=== PATIENT | female | born 1965 | race Hispanic/Latino ===

== ENCOUNTER 2018-01-15 13:45 | Inpatient (IN) | payer MEDICAID ==
[2018-01-15 13:46] VITALS: BMI 40.1
[2018-01-15 14:11] VITALS: O2SAT 98
--- NOTE | 2018-01-15 14:34 | ED PDOC ---
Arrival/HPI - General Chief Complaint: Psychiatric Evaluation Time Seen by Provider: 01/15/18 14:01 Historian: Patient - History of Present Illness Time/Duration: Other (Several months) Symptom Onset: Gradual Symptom Course: Worsening Severity Level: Moderate Activities at Onset: Rest Associated Symptoms (Text): 01/15/18 14:32 Patient complains of a several month history of depression. She states she has no energy and is unable to concentrate and has poor eating and sleeping habits. She denies suicidal or homicidal ideation. Denies visual or auditory hallucinations. She reports that she has had 2 deaths in her family over the last few months. She stopped taking her Synthroid 5 months ago. She does not take her Neurontin or Celebrex as prescribed. Her niece and sister in law have over the last several months. Past Medical History - Infectious Disease Hx of Infectious Diseases: None - Reproductive Menopause: Yes - Cardiac Hx Pacemaker: No - Neurological Hx Paralysis: No - Endocrine/Metabolic Hx Endocrine Disorders: Yes Hx Hypothyroidism: Yes - Hematological/Oncological Hx Blood Transfusions: No Hx Blood Transfusion Reaction: No - Musculoskeletal/Rheumatological Hx Musculoskeletal Disorders: Yes (PAIN/SWELLING L KNEE) Other/Comment: rt shoulder pain since Aug - Psychiatric Hx Emotional Abuse: No Hx Physical Abuse: No Hx Substance Use: No - Surgical History Hx Section: Yes - Anesthesia Hx Anesthesia: Yes Hx Anesthesia Reactions: No Hx Malignant Hyperthermia: No - Suicidal Assessment Feels Threatened In Home Enviroment: No Family/Social History - Physician Review Nursing Documentation Reviewed: Yes Family/Social History: Unknown Family HX Smoking Status: Former Smoker Hx Alcohol Use: Yes (ON OCCASION) Hx Substance Use: No Allergies/Home Meds Allergies/Adverse Reactions: Allergies gemfibrozil Adverse Reaction (Verified 01/15/18 14:11) FATIGUE lovastatin Adverse Reaction (Verified 01/15/18 14:11) FATIGUE Home Medications: Home Meds Medication Instructions Recorded Confirmed Omeprazole Magnesium [Prilosec Otc] 20 mg PO PRN PRN 06/23/14 01/15/18 Gabapentin [Neurontin] 300 mg PO TID 02/29/16 01/15/18 Oxycodone HCl/Acetaminophen 1 each PO PRN PRN 02/29/16 01/15/18 [Percocet 10-325 mg Tablet] Review of Systems - Physician Review All systems were reviewed & negative as marked: Yes - Review of Systems Constitutional: Fatigue. absent: Fevers Respiratory: absent: SOB, Cough, Wheezing Cardiovascular: absent: Chest Pain, Palpitations, Syncope Gastrointestinal: absent: Abdominal Pain, Diarrhea, Vomiting Genitourinary Female: absent: Dysuria, Frequency, Hematuria Neurological: absent: Headache, Dizziness, Focal Weakness, Gait Changes Physical Exam Vital Signs Temp Pulse Resp BP Pulse Ox 01/15/18 15:05 86 18 152/96 H 98 01/15/18 14:06 98.4 F 96 H 18 157/101 H 98 Temperature: Afebrile Blood Pressure: Hypertensive Pulse: Regular Respiratory Rate: Normal Appearance: Positive for: Well-Appearing, Non-Toxic, Comfortable, Other (Crying) Pain Distress: None Mental Status: Positive for: Alert and Oriented X 3 - Systems Exam Head: Present: Atraumatic, Normocephalic Pupils: Present: PERRL Extroacular Muscles: Present: EOMI Conjunctiva: Present: Normal Mouth: Present: Moist Mucous Membranes Pharnyx: No: ERYTHEMA, EXUDATE, TONSILS ENLARGED Neck: Present: Normal Range of Motion Respiratory/Chest: Present: Clear to Auscultation, Good Air Exchange, Decreased Breath Sounds. No: Respiratory Distress, Accessory Muscle Use Cardiovascular: Present: Regular Rate and Rhythm, Normal S1, S2. No: Murmurs Abdomen: Present: Normal Bowel Sounds. No: Tenderness, Distention, Peritoneal Signs, Rebound, Guarding Upper Extremity: Present: Normal Inspection. No: Cyanosis, Edema Lower Extremity: Present: Normal Inspection. No: Edema Neurological: Present: GCS=15, CN II-XII Intact, Speech Normal, Motor Func Grossly Intact Skin: Present: Warm, Dry, Normal Color. No: Rashes Psychiatric: Present: Alert, Oriented x 3, Normal Insight, Normal Concentration Medical Decision Making ED Course and Treatment: 01/15/18 15:13 EKG shows normal sinus rhythm rate approximately 90 with nonspecific T-wave changes and a prolonged QT interval with no acute ST or T-wave changes 01/15/18 17:06 When questioned about positive drug screen the patient reports that she used some cocaine yesterday as a pick me up. She reports she has no idea how she is positive for opiates. - Lab Interpretations Lab Results: 01/15/18 14:50 01/15/18 14:50 Lab Results 01/15/18 14:50: Urine Color Yellow, Urine Appearance Sl cloudy, Urine pH 6.0, Ur Specific Gardner >= 1.030, Urine Protein Trace H, Urine Glucose (UA) Negative , Urine Ketones Trace H, Urine Blood Trace-intact H, Urine Nitrate Negative, Urine Bilirubin Small H, Urine Urobilinogen 0.2, Ur Leukocyte Esterase Trace H, Urine RBC 0 - 2, Urine WBC 2 - 5, Ur Epithelial Cells 6 - 8, Urine Bacteria Few , Urine HCG, Qual Negative 01/15/18 14:50: Urine Opiates Screen Positive H, Urine Methadone Screen Negative , Ur Barbiturates Screen Negative, Ur Phencyclidine Scrn Negative, Ur Amphetamines Screen Negative, U Benzodiazepines Scrn Negative, U Oth Cocaine Metabols Positive H, U Cannabinoids Screen Negative 01/15/18 14:50: Salicylates < 1 L, Acetaminophen < 10.0 L 01/15/18 14:50: TSH 3rd Generation 36.20 H, Alcohol, Quantitative < 10 01/15/18 14:50: Sodium 141, Potassium 4.3, Chloride 102, Carbon Dioxide 27, Anion Gap 16, BUN 13, Creatinine 0.8, Est GFR ( Amer) > 60, Est GFR (Non- Af Amer) > 60, Random Glucose 121 H, Calcium 9.8, Total Bilirubin 0.4, AST 24, ALT 31, Alkaline Phosphatase 113, Total Protein 8.3, Albumin 4.4, Globulin 3.9, Albumin/Globulin Ratio 1.1 01/15/18 14:50: WBC 7.4, RBC 4.48, Hgb 13.5, Hct 39.9, MCV 89.1, MCH 30.1, MCHC 33.8, RDW 14.2, Plt Count 236, MPV 10.7, Gran % 58.2, Lymph % (Auto) 28.5, Ector % (Auto) 5.7, Eos % (Auto) 7.2 H, Baso % (Auto) 0.4, Gran # 4.32, Lymph # (Auto ) 2.1, Ector # (Auto) 0.4, Eos # (Auto) 0.5, Baso # (Auto) 0.03 - Medication Orders Current Medication Orders: Levothyroxine Sodium (Synthroid) 200 mcg PO 0600 [facility] Disposition/Present on Arrival - Present on Arrival Any Indicators Present on Arrival: No History of DVT/PE: No History of Uncontrolled Diabetes: No Urinary Catheter: No History of Decub. Ulcer: No History Surgical Site Infection Following: None - Disposition Have Diagnosis and Disposition been Completed?: Yes Diagnosis: Depression, Substance abuse, Hypothyroidism, Hypertension Disposition: HOSPITALIZED Disposition Time: 16:20 Patient Plan: Admission Patient Problems: Current Active Problems Problem Status Onset Depression Acute Hypertension Acute Hypothyroidism Acute Substance abuse Acute Condition: GOOD
[2018-01-15 15:11] LABS: BASO # 0.03 K/mm3 (0.0-2.0); BASO % 0.4 % (0.0-3.0); EOS # 0.5 (0.0-0.7); EOS % 7.2 % (1.5-5.0); GRAN # 4.32 (1.4-6.5); GRAN % 58.2 % (50.0-68.0); HEMOGLOBIN 13.5 g/dL (12.0-16.0); LYMPH # 2.1 (1.2-3.4); LYMPH % 28.5 % (22.0-35.0); MEAN CELL VOLUME 89.1 fl (80.0-105.0); MEAN CORPUSCULAR HEMOGLOBIN 30.1 pg (25.0-35.0); MEAN CORPUSCULAR HGB CONC 33.8 g/dl (31.0-37.0); MEAN PLATELET VOLUME 10.7 fl (7.0-11.0); MONO # 0.4 (0.1-0.6); MONO % 5.7 % (1.0-6.0); RBC 4.48 10^6/uL (3.5-6.1); RED CELL DISTRIBUTION WIDTH 14.2 % (11.5-14.5); WHITE BLOOD COUNT 7.4 10^3/ul (4.5-11.0)
[2018-01-15 15:13] LABS: URINE BILIRUBIN SMALL (NEGATIVE); URINE BLOOD TRACE-INTACT (NEGATIVE); URINE GLUCOSE (UA) NEGATIVE (NEGATIVE); URINE LEUKOCYTE ESTERASE TRACE Leu/uL (NEGATIVE); URINE PROTEIN TRACE mg/dL (<30 mg/dL); URINE UROBILINOGEN 0.2 E.U./dL (<1 E.U./dL)
[2018-01-15 15:17] LABS: HCG,QUALITATIVE URINE NEGATIVE (NEGATIVE); URINE APPEARANCE SL CLOUDY (CLEAR); URINE COLOR YELLOW (YELLOW)
[2018-01-15 15:20] LABS: URINE BACTERIA FEW (NEG); URINE RBC 0 - 2 /hpf (0-2)
[2018-01-15 15:35] LABS: ALB/GLOB RATIO 1.1 (1.1-1.8); ALBUMIN 4.4 g/dL (3.0-4.8); ALT/SGPT 31 U/L (7-56); AST/SGOT 24 U/L (14-36); BLOOD UREA NITROGEN 13 mg/dL (7-21); CALCIUM 9.8 mg/dL (8.4-10.5); GFR AFRICAN-AMERICAN > 60; GFR NON-AFRICAN AMERICAN > 60
[2018-01-15 15:44] LABS: BARBITURATES, UR NEGATIVE (NEGATIVE)
[2018-01-15 15:54] LABS: BENZODIAZEPINES, UR NEGATIVE (NEGATIVE); OPIATES, UR POSITIVE (NEGATIVE); PHENCYCLIDINE, UR NEGATIVE (NEGATIVE)
[2018-01-15 15:56] LABS: ACETAMINOPHEN < 10.0 ug/ml (10.0-20.0); SALICYLATE < 1 mg/dL (2.0-20.0)
--- NOTE | 2018-01-15 18:54 | CARD ---
APPROVED REPORT EKG Measurement Heart [id number] <Conclusion> Normal sinus rhythm Nonspecific T wave abnormality Prolonged QT Abnormal ECG
[2018-01-15] MEDS ORDERED: Alum-Mag Hydrox-Simethicone Susp (30 mL) PO PRN (19:09)
[2018-01-15] MEDS ORDERED: Magnesium Hydroxide Susp 30 ml UD PO PRN (19:09)
--- NOTE | 2018-01-15 20:21 | PCM.BM ---
<Rocio Edwards - Last Filed: 01/15/18 20:18> Treatment Plan Problems - Problems identified on initial assessmt ineffective coping skills Date Initiated: 01/15/18 Time Initiated: 20:30 Assessment reference: NA Status: Active Priority: 1 non compliance with medication Date Initiated: 01/15/18 Time Initiated: 20:30 Assessment reference: NA Status: Active Priority: 2 helpless and hopeless Date Initiated: 01/15/18 Time Initiated: 20:30 Assessment reference: NA Status: Active Priority: 3 Treatment assets and liabiliti Patient Assests: adapts well, cooperative, motivated, ADL independent, cognitively intact, good interpersonal skills Patient Liabilities: physical pain, substance abuse - Milieu Protocol Maintain good personal hygiene: daily Encourage regular showers, daily Remind patient to perform daily oral care, daily Assist patient to perform ADL's Maintain personal safety: every shift Educate patient to report safety concerns to staff, every shift Monitor environment for contraband/sharps Medication safety: Monitor for expected outcome, potential side effects: every shift, Assess barriers to learning: every shift, Assess readiness for medication education: every shift Discharge/Continuing Care - Education Needs Education Needs: Patient Medication, Patient Diagnosis/Disease Process, Patient Coping Skills, Patient Placement options, Patient Community resources, Patient Activities of Daily Living, Patient Pain, Patient Nutrition, Patient Health Practices/Safety, Patient Personal Hygiene/Grooming, Patient Aftercare Safety Plan - Discharge Discharge Criteria: Tolerates medication w/o severe side effects, Free of Suicidal thoughts, Normal sleep pattern, Ability to care for self, Reduction of target symptoms Discharge to:: Home <Fe Read - Last Filed: 01/16/18 09:07> - Diagnosis (1) MDD (major depressive disorder) Status: Acute Interventions: 01/16/18 09:08 Psychoeducation Psychopharmacology/adjustment of medications as needed/ monitoring possible side effects Evaluate pt on daily basis Compliance with medications and follow up appointments Suicide and homicide risk assessment and prevention Relapse prevention Reduction of symptoms Improve functional status Family involvement As outpatient: cognitive behavioral therapy <Jacy Vogel - Last Filed: 01/17/18 15:22> Family Contact Family involvement: Famliy/SO not involved
--- NOTE | 2018-01-16 05:40 | CON ---
DATE: ENDOCRINOLOGY CONSULTATION LOCATION: In room 514, Psychiatry. HISTORY OF PRESENT ILLNESS: This is a 52-year-old female with known history of hypothyroidism, apparently discontinued her medications almost 6 months ago and presents here with major depressive disorder and has been admitted to Psychiatry for closer evaluation and management, and is being referred also for Endocrine evaluation and management. PAST MEDICAL HISTORY: History of hypothyroidism, previously on levothyroxine given as 200 mcg daily, history of hypertension and dyslipidemia, history of chronic schizoaffective disorder with previous admissions for major depression. She admits to recent deaths in the family causing the recent exacerbation of anxiety and depression. SOCIAL HISTORY: Patient has supportive family. Admits to previous history of smoking and social use of alcohol. REVIEW OF SYSTEMS: As mentioned above, admits to generalized body weakness with easy fatigability and tiredness and suboptimal energy level with marked insomnia and disruptive sleep patterns. Also admits to bifrontal headaches with recent emotional dysphoria and worsening depression as noted thereof. No chest pains or palpitations, but admits to episodic shortness of breath especially on exertion. Her oral intake has been variable with dyspepsia and habitual constipation. No recent alterations of bowel or urinary patterns otherwise. PHYSICAL EXAMINATION: GENERAL: This is an overweight female, in no apparent distress. VITAL SIGNS: Blood pressure of 140/80, pulse of 70 beats per minute and regular, temperature 98, respirations 20, height is 5 feet 6 inches, weight is 234 pounds. HEENT: Head normocephalic. Eyes anicteric with pink conjunctivae. Funduscopy not possible at this time. Ears, nose, and throat otherwise normal. NECK: Supple. Thyroid gland is normal in size. No carotid bruits or any cervical adenopathy. CARDIOPULMONARY: Adynamic precordium. S1 and S2 is rapid and regular. LUNGS: Clear to auscultation. ABDOMEN: Flat, soft with positive bowel sounds. EXTREMITIES: No peripheral edema. Pulses are +2 bilaterally. LABORATORY DATA: Chemistries showed a BUN of 13, sodium 141, potassium 4.3, chloride 102, CO2 of 27, glucose 121, creatinine 0.8. Her TSH is 36.20. ASSESSMENT: This is a 52-year-old female with overt hypothyroidism, both clinically, historically and biochemically, most likely related to a poor adherence to her levothyroxine replacement therapy and possibly as autoimmune thyroiditis as noted thereof. No overt thyroid nodules and cervical adenopathy are palpable at this time. PLAN OF MANAGEMENT: We will continue and concur with the levothyroxine medication ordered at 200 mcg daily for tomorrow morning and we will titrate incrementally as indicated to optimize metabolic control. We will obtain serial chemistries and supplement accordingly as needed. We will also repeat the thyroid function studies to include a thyroid peroxidase antibody, which will confirm and/or indicate the presence of thyroid autoimmunity. We will also add a serum cortisol level as ordered. We will follow. Padmini Nguyen MD
[2018-01-16 07:31] VITALS: RESP 20
[2018-01-16 08:28] LABS: ALB/GLOB RATIO 1.2 (1.1-1.8); ALBUMIN 4.6 g/dL (3.0-4.8); ALT/SGPT 32 U/L (7-56); AST/SGOT 23 U/L (14-36); BLOOD UREA NITROGEN 12 mg/dL (7-21); GFR AFRICAN-AMERICAN > 60; GFR NON-AFRICAN AMERICAN > 60; HDL CHOLESTEROL 76 mg/dL (29-60)
[2018-01-16 08:39] LABS: LDL CHOLESTEROL 93 mg/dL (0-129)
[2018-01-16 08:44] LABS: FREE T4 0.71 ng/dL (0.78-2.19); T4 6.2 ug/dL (5.5-11.0)
[2018-01-16] MEDS: Levothyroxine 200 MCG TAB PO SCH (09:48)
[2018-01-16] MEDS: TraMADol/Apap 37.5/325 mg Tab PO PRN ×2 (10:35→21:04)
--- NOTE | 2018-01-16 11:52 | MRI ---
PROCEDURE: MRI of the right shoulder without contrast HISTORY: pain COMPARISON: TECHNIQUE: MRI of the right shoulder was performed in multiple planes using multiple pulse sequences. FINDINGS: There is severe tendinopathy of the distal rotator cuff with a full thickness tear in the distal supraspinatus. There is no retraction of the tendon or muscle. The tear measures 9 mm in diameter as seen on sagittal image 8 series 9. There is a small amount of fluid in the subdeltoid bursa and a small joint effusion. The glenoid labrum and biceps tendon are intact. IMPRESSION: Severe tendinopathy of the distal rotator cuff with a small full-thickness tear in the anterior supraspinatus. There is no tendon retraction or muscular atrophy.
--- NOTE | 2018-01-16 15:03 | CON ---
DATE: HISTORY OF PRESENT ILLNESS: I was called to the Psychiatric Unit to evaluate her. I saw her in the room. She is a 52-year-old white female who presents with depression due to family passing and family illnesses she tells me and she is not feeling well with the deaths in her family over the past few months. She stopped taking her Synthroid 5 months ago, it did not help the situation and per understanding, she is doing drugs, cocaine which is not going to help her. PAST MEDICAL HISTORY: She has a past medical history of menopause, hypothyroidism, noncompliant, right shoulder pain. She is supposed to get an MRI this morning, was ordered on the outpatient by primary care physician. She had pains in her knees, left knee on and off with swelling. She had a . FAMILY HISTORY: Unknown family history. SOCIAL HISTORY: Former smoker. She drinks alcohol. Also, there was cocaine and benzodiazepines on urine drug screen, but she denies substance abuse. ALLERGIES: SHE IS ALLERGIC TO GEMFIBROZIL AND LOVASTATIN. On the blood tests, it shows that she has very high cholesterol, very high triglycerides. She has to be on a low-triglyceride, low-cholesterol diet. She also need to be put on medications to help lower that and she is very noncompliant, she tells me with her diet. MEDICATIONS: She is on Prilosec, Neurontin and Percocet. REVIEW OF SYSTEMS: She has tiredness, depression. There is no sore throat or neck pain, no chest pain or palpitations or coughing. No wheezing or shortness of breath. No abdominal pain, nausea, vomiting, constipation or diarrhea. No problems urinating. She has right shoulder pain, left knee from time to time acts up. No headaches or dizziness. She is depressed. PHYSICAL EXAMINATION GENERAL: She is well appearing, non toxic, walking with me into her room. She is alert and oriented x3, comfortable. VITAL SIGNS: She has 98.4 temp, 96 pulse, 18 respiratory rate, 157/101 blood pressure, which is very high. I will put her on blood pressure pills. HEENT: Head: Atraumatic, normocephalic. Extraocular muscles intact. Pupils are equal and reactive to light. Throat is moist. NECK: Supple. HEART: Regular rate. Normal S1 and S2. LUNGS: Clear to auscultation bilaterally with decreased breath sounds. ABDOMEN: Soft, nontender. Positive bowel sounds. No guarding, no rebound. EXTREMITIES: No edema. She can move all 4 extremities okay. NEUROLOGIC: GCS is 15. Cranial nerves II through XII grossly intact. Normal speech. Alert and oriented x3. LYMPH NODES: Thyroid midline. No palpable appreciable lymphadenopathy. LABORATORY DATA: She had whole bunch of tests that were done. She has white count 7.4, hemoglobin 13.5, hematocrit 39.9 with platelets 236. Sodium 141, potassium 3.8, BUN 12, creatinine 0.8, GFR is greater than 60, sugar 99, calcium is 10, AST is 23, ALT is 32, alkaline phosphatase 101. Total protein is 8.4. Triglycerides is ambar high at 306, cholesterol is ambar high at 296, HDL is 576, thyroid test is 36.2, very high. She is back on her Synthroid now. Her urine was trace. Toxicology was positive for opiates and cocaine. She has an Endocrinology consult. We will check her labs tomorrow. Change her diet around to low cholesterol, low triglycerides, 2 g sodium diet. Last blood pressure was 149/99. I am going to put her on blood pressure pills. She is currently on Ativan, Geodon, Neurontin, Remeron, Synthroid, Tylenol. I am going to add some Norvasc 5 mg to start and see what her blood pressure is and we will follow along. Thank you very much for the opportunity. Tr Cruz DO
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
--- NOTE | 2018-01-16 23:23 | PN ---
DATE: ENDOCRINOLOGY FOLLOWUP NOTE LOCATION: Room 514. SUBJECTIVE: This is a 52-year-old female admitted with major depressive disorder and concomitant generalized anxiety and insomnia and recent behavioral changes and is now being followed closely for metabolic management. She also has overt hypothyroidism and currently tolerating the levothyroxine replacement therapy as given. Her latest thyroid study showed a T4 of 6.2 mcg/dL with a free T4 of 0.71 and a TSH of 27.30. Her latest chemistry showed a BUN of 12, sodium 144, potassium 3.8, chloride 104, CO2 of 28, glucose 99, and creatinine 0.8. Her triglyceride levels are 306 with cholesterol 296 and HDL of 76 and LDL of 93. 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 PLAN OF MANAGEMENT: We will continue the modified levothyroxine replacement therapy with the same dose given as 200 mcg once daily as ordered. We will also add fenofibrate given as 145 mg as ordered with the underlying marked dyslipidemia and triglyceride levels of 306 and cholesterol of 296. There is also a big factor of the underlying overt hypothyroidism, which will impede and impair the clearance of the total cholesterol and LDL cholesterol as noted. We will obtain serial chemistries and supplement accordingly as needed. We will follow. Padmini Nguyen MD
[2018-01-17] MEDS: TraMADol/Apap 37.5/325 mg Tab PO PRN ×4 (02:39→21:18)
[2018-01-17] MEDS: Levothyroxine 200 MCG TAB PO SCH (07:43)
[2018-01-17 08:06] LABS: HEMOGLOBIN 13.8 g/dL (12.0-16.0); MEAN CELL VOLUME 87.8 fl (80.0-105.0); MEAN CORPUSCULAR HEMOGLOBIN 29.6 pg (25.0-35.0); MEAN CORPUSCULAR HGB CONC 33.7 g/dl (31.0-37.0); RBC 4.66 10^6/uL (3.5-6.1); RED CELL DISTRIBUTION WIDTH 14.1 % (11.5-14.5); WHITE BLOOD COUNT 6.7 10^3/ul (4.5-11.0)
[2018-01-17 08:19] LABS: ALB/GLOB RATIO 1.3 (1.1-1.8); ALBUMIN 4.4 g/dL (3.0-4.8); ALT/SGPT 31 U/L (7-56); AST/SGOT 22 U/L (14-36); BLOOD UREA NITROGEN 12 mg/dL (7-21); GFR AFRICAN-AMERICAN > 60; GFR NON-AFRICAN AMERICAN > 60
[2018-01-17 08:33] LABS: T4 7.1 ug/dL (5.5-11.0)
[2018-01-17] MEDS ORDERED: Bupivacaine 0.5% Inj(30mL) IJ ONE (09:02)
[2018-01-17] MEDS ORDERED: MethylPREDNISolone Depo 40 mg/ml Inj IM ONE (09:02)
--- NOTE | 2018-01-17 13:39 | PN ---
DATE: SUBJECTIVE: I saw her this morning. She is doing better than when she came in. She is in better spirits. She slept okay. She is on Ativan, Claritin, Geodon, milk of magnesia, Maalox, Neurontin, Norvasc trying to increase it from 5 to 10 mg this morning, Remeron, Synthroid, TriCor, Tylenol, Ultracet, and Wellbutrin. She also slept better, eating better. OBJECTIVE: VITAL SIGNS: She has a 97.6 temperature, 84 pulse, her blood pressure is still high at 150/98, and a 20 respiratory rate. I will increase her Norvasc from 5 mg to 10 mg today if it persists I will entail then. She has 98% O2 sat. HEENT: Head is atraumatic, normocephalic. She is more alert and calm. Throat is moist. NECK: Supple. HEART: Regular rate. LUNGS: Decreased breath sounds, but clear. ABDOMEN: Soft, obese. EXTREMITIES: No edema. She also tells me that the pain is much less that the Ultracet is helping her. LABORATORY DATA: She has a 7.4 white count, 13.5 hemoglobin, 39.9 hematocrit, with 236 platelets. She has a 144 sodium, potassium 3.8. BUN 12, creatinine 0.8. GFR is greater than 60. Sugar is 99. Calcium is 10. AST is 23, ALT is 32, alkaline phosphatase 101. She has triglycerides of 306, cholesterol of 296. Problem with her is that SHE IS ALLERGIC TO GEMFIBROZIL AND LOVASTATIN and she cannot get medications for that and we do not carry the Questran. Her TSH is 27.3. She is on Synthroid 200 mcg. She was positive for cocaine and opiates on her drug screen when she came in, which I think of leaving her system right now, that is why she is feeling better. Endocrinology is on the case. We will watch her closely and she can have the fenofibrate, she tells me for the triglycerides, we will see how she does. I think she refused it. She has multiple issues, very high blood pressure, high triglycerides, high cholesterol, hypothyroid, drug abuse, cocaine and opiates, and hypertension. Tr Cruz DO [facility] # [id number]
--- NOTE | 2018-01-17 15:17 | PCM.PYCHPN ---
Psychiatric Progress Note - Psychiatric Progress Note Patient seen today, length of contact: 30 minutes Patient Chief Complaint: "IM doing little bit better" Problems Identified/Issues Discussed: Suicide/ homicide prevention, past psychiatric h/o, current psychiatric symptoms , medical problems, risk/benefits and alternatives of medications, medications compliance, coping strategies, substance abuse h/o, relapse prevention, importance of follow up with psychiatrist and therapist, discharge plan. Medical Problems: carpal tunnel syndrome on both hands ,neuropathy on left foot, arthitis on knees and hips and right shoulder pain since last thanksgiving year as she acquired due to lifting bags of dog food, pt also has hypothyroidism. Diagnostic Results: 01/17/18 07:30 01/17/18 07:30 Lab Results 01/17/18 07:30: 25-OH Vitamin D Total 15.2 L 01/17/18 07:30: Thyroxine (T4) 7.1, TSH 3rd Generation 31.60 H 01/17/18 07:30: Sodium 144, Potassium 3.8, Chloride 103, Carbon Dioxide 27, Anion Gap 17, BUN 12, Creatinine 0.8, Est GFR ( Amer) > 60, Est GFR (Non- Af Amer) > 60, Random Glucose 102, Calcium 10.0, Total Bilirubin 0.4, AST 22, ALT 31, Alkaline Phosphatase 96, Total Protein 7.9, Albumin 4.4, Globulin 3.5, Albumin/Globulin Ratio 1.3 01/17/18 07:30: WBC 6.7, RBC 4.66, Hgb 13.8, Hct 40.9, MCV 87.8, MCH 29.6, MCHC 33.7, RDW 14.1, Plt Count 236, MPV 11.0 01/16/18 09:00: Cortisol AM Sample 12.2 01/16/18 08:00: RPR Nonreactive 01/16/18 08:00: Sodium 144, Potassium 3.8, Chloride 104, Carbon Dioxide 28, Anion Gap 16, BUN 12, Creatinine 0.8, Est GFR ( Amer) > 60, Est GFR (Non- Af Amer) > 60, Random Glucose 99, Calcium 10.0, Total Bilirubin 0.5, AST 23, ALT 32, Alkaline Phosphatase 101, Total Protein 8.4 H, Albumin 4.6, Globulin 3.8 , Albumin/Globulin Ratio 1.2, Triglycerides 306 H, Cholesterol 296 H, LDL Cholesterol Direct 93, HDL Cholesterol 76 H 01/16/18 08:00: Free T4 0.71 L, Thyroxine (T4) 6.2, TSH 3rd Generation 27.30 H 01/15/18 14:50: Urine Color Yellow, Urine Appearance Sl cloudy, Urine pH 6.0, Ur Specific [place] >= 1.030, Urine Protein Trace H, Urine Glucose (UA) Negative , Urine Ketones Trace H, Urine Blood Trace-intact H, Urine Nitrate Negative, Urine Bilirubin Small H, Urine Urobilinogen 0.2, Ur Leukocyte Esterase Trace H, Urine RBC 0 - 2, Urine WBC 2 - 5, Ur Epithelial Cells 6 - 8, Urine Bacteria Few , Urine HCG, Qual Negative 01/15/18 14:50: Urine Opiates Screen Positive H, Urine Methadone Screen Negative , Ur Barbiturates Screen Negative, Ur Phencyclidine Scrn Negative, Ur Amphetamines Screen Negative, U Benzodiazepines Scrn Negative, U Oth Cocaine Metabols Positive H, U Cannabinoids Screen Negative 01/15/18 14:50: Salicylates < 1 L, Acetaminophen < 10.0 L 01/15/18 14:50: TSH 3rd Generation 36.20 H, Alcohol, Quantitative < 10 01/15/18 14:50: Sodium 141, Potassium 4.3, Chloride 102, Carbon Dioxide 27, Anion Gap 16, BUN 13, Creatinine 0.8, Est GFR ( Amer) > 60, Est GFR (Non- Af Amer) > 60, Random Glucose 121 H, Calcium 9.8, Total Bilirubin 0.4, AST 24, ALT 31, Alkaline Phosphatase 113, Total Protein 8.3, Albumin 4.4, Globulin 3.9, Albumin/Globulin Ratio 1.1 01/15/18 14:50: WBC 7.4, RBC 4.48, Hgb 13.5, Hct 39.9, MCV 89.1, MCH 30.1, MCHC 33.8, RDW 14.2, Plt Count 236, MPV 10.7, Gran % 58.2, Lymph % (Auto) 28.5, [place] % (Auto) 5.7, Eos % (Auto) 7.2 H, Baso % (Auto) 0.4, Gran # 4.32, Lymph # (Auto ) 2.1, [place] # (Auto) 0.4, Eos # (Auto) 0.5, Baso # (Auto) 0.03 Vital Signs Temp Pulse Resp BP Pulse Ox 01/17/18 08:33 125/89 01/17/18 07:33 97.6 F 84 20 150/98 H 01/16/18 07:31 97.9 F 76 20 149/99 H 01/15/18 15:05 86 18 152/96 H 98 01/15/18 14:06 98.4 F 96 H 18 157/101 H 98 DSM 5 Symptoms Update: shortly, patient is 52 year old female, reported history of depression , anxiety, patient denied history of psychiatric admissions, denied history of suicidal attempts, patient has multiple medical problems including hypothyroidism, chronic shoulder pain, patient was admitted to the psychiatric inpatient unit for evaluation and stabilization of depressive symptoms, feeling of hopelessness, inability to function, difficulty to concentrate, difficulties to cope with multiple losses in her life. pt tried to look for outpatient treatment, but unfortunately [facility] waiting list takes months to get an appointment. Pt was seen and examined today at the morning time at the treatment team room, patient presented to have acceptable personal hygiene, good ADLs. patient presented to be more stable, was not crying, thought process is more coherent, patient is less anxious. she reported that her energy level is coming back, patient reported that she had fair sleep, overall patient notices "some improvement". Patient started to go to groups, visible in the unit. Patient does not have any agitation or aggression, patient is socially appropriate. Patient tolerated medications well, no side effects observed or reported, aims 0 , no EPS. As per staff patient pleasant and corporative. Impression: The line rule out major depressive disorder Rule out adjustment disorder with depressed and anxious mood Disorder due to general medical condition, patient has history of hypothyroidism , was noncompliant with the medications. cocaine abuse Medication Change: Yes Medical Record Reviewed: Yes Consults ordered or reviewed: medical consult appreciated Endocrinology consult appreciated Mental Status Examination - Cognitive Function Orientation: Person, Place, Situation, Time Memory: Intact Attention: Poor (improvement) Concentration: Poor (some improvement) Association: WNL Fund of Knowledge: WNL - Mood Mood: Depressed (I feel better), Anxious (I feel better) - Affect Affect: Other (labile) - Speech Speech: Appropriate - Formal Thought Process Formal Thought Process: No Impairment - Suicidal Ideation Suicidal Ideation: No - Homicidal Ideation Homicidal Ideation: No Goal/Treatment Plan - Goal/Treatment Plan Need for Continued Stay: Remain at risks for inpatient hospitalization, Severe depression anxiety, Discharge may exacerbated symptoms, Severe functional impairment Progress Toward Problem(s) and Goals/Treatment Plan: Milieu/structure/supportive therapy Medical consult appreciated, see medical team note for more detailed info SW consultation for discharge plan and social issues Med management wellbutrin for mdd 100mg daily remeron 15mg po hs for insomnia endocrinology consult appreciated neurontin was resumed Family involvement Follow up on labs Will monitor closely Pt was educated about risk/benefits and alternatives of medications, coping strategies (safety plan, suicide prevention), relapse prevention, importance of follow up with psychiatrist and therapist, stay away from drugs/alcohol/smoking Estimated Date of D/C: 01/19/18
--- NOTE | 2018-01-17 22:57 | CON ---
DATE: 01/17/2018 LOCATION: The patient is in room 514. HISTORY OF PRESENT ILLNESS: I was asked to see her for a shoulder problem where she had an MRI showing a rotator cuff tear, small, of the right shoulder supraspinatus area with inability to fully flex and extend in the abductor only 60 to 70 degrees. This MRI of the right shoulder was done on 01/17/2018 and she does have her private orthopedic doctor in [place], but if she needs to, she can come to see me for further treatment whether it be surgical or conservative. She could try therapy to strengthen it to avoid surgery. If need be, I could send her to therapy when she gets out of the hospital or could even give her one cortisone injection to see how it feels and to follow her plain x-rays too, but if she needs further care, I will have to see her in the office. FINAL DIAGNOSIS: Small rotator cuff tear, right shoulder, that is fixable with orthopedic surgery and repair. Ray Dsouza DO
[2018-01-18] MEDS: Levothyroxine 200 MCG TAB PO SCH (06:28)
[2018-01-18] MEDS: TraMADol/Apap 37.5/325 mg Tab PO PRN (06:37)
[2018-01-18 07:32] VITALS: BP 91/43; PULSE 57; TEMP 97.8
--- NOTE | 2018-01-18 08:34 | PN ---
DATE: 01/17/2018 FOLLOWUP NOTE LOCATION: Room 514, Psychiatry. SUBJECTIVE: This is a 52-year-old female with recent overt hypothyroidism both historically, clinically and biochemically and currently is tolerating the levothyroxine replacement therapy as given. She is undergoing closer psychiatric evaluation and management for recent major depressive disorder and behavioral disturbances as noted thereof. Her latest chemistry showed a BUN of 12, sodium 144, potassium of 3.8, chloride 104, CO2 28, glucose 99 and creatinine 0.8. Her thyroid study showed a T4 of 6.2 with a free T4 of 0.71 and a TSH of 27.30. Her serum cortisol level is 12.2 mcg/dL. So at this time, we will continue the same levothyroxine given as 200 mcg once daily in the morning as ordered. We will continue also the fenofibrate given as 145 mg at bedtime for recent marked dyslipidemia as noted thereof. We will obtain serial chemistries and supplement accordingly needed. We will obtain serial thyroid studies and titrate her dose regimen accordingly. Padmini Nguyen MD
--- NOTE | 2018-01-18 13:03 | PN ---
DATE: SUBJECTIVE: I saw her resting comfortably in a chair. She had no complaints this morning. She is feeling a lot better. She also tells me she is leaving today. She has no complaints of chest pain or shortness of breath and she is eating and feeling better mentally. She is on Ativan, Claritin, Geodon, Maalox, milk of magnesia, Neurontin, Norvasc, Remeron, Synthroid, TriCor, Tylenol, Ultracet and Wellbutrin. PHYSICAL EXAMINATION VITAL SIGNS: Temperature 97.8, 67 pulse, 125/89 blood pressure, 20 respiratory rate. HEENT: Head is atraumatic, normocephalic. HEART: Regular rate. LUNGS: Clear to auscultation. ABDOMEN: Soft. EXTREMITIES: No edema. I might decrease the amlodipine back down to 5 mg, 10 mg might have been too strong. LABORATORY DATA: She has a 6.7 white count, 13.8 hemoglobin, 236,000 platelets. Sodium 144, potassium 3.8, BUN 12, creatinine 0.8. RPR is nonreactive. ASSESSMENT AND PLAN: She is being seen by Endocrine. Orthopedics saw her because she has a right shoulder tear. She has hypertension, low potassium. She might have to go for orthopedic repair on an outpatient and hopefully, she will do well. I will decrease the Norvasc to 5 mg and she will continue with Synthroid for the hypothyroidism and follow up with Dr. Pabon who is her primary care doctor due to diagnoses of hypothyroidism, hypertension, rotator cuff tear. Tr Cruz DO [facility]
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
--- NOTE | 2018-01-18 22:27 | PN ---
DATE: ENDOCRINOLOGY FOLLOWUP NOTE LOCATION: Room 514. SUBJECTIVE: This is a 52-year-old female with recent overt hypothyroidism, now being followed closely for metabolic management. She is also undergoing closer psychiatric evaluation and management for recent major depressive disorder and associated dysphoria and emotional and mood disturbances. Her latest thyroid study showed a T4 of 7.1 with a TSH of 31.60 and a free T4 of 15.2 and a serum cortisol of 12.2. Her latest chemistry showed a BUN of 12, sodium 144, potassium 3.8, chloride 103, CO2 of 27, glucose 102, and creatinine 0.8. So, at this time, we will continue the same hefty levothyroxine dose regimen of 200 mcg before breakfast as ordered. We will consider change of her levothyroxine as the thyroid studies become available as ordered . We will follow. Padmini Nguyen MD
== END 2018-01-18 16:01 | disposition home or self-care (01) | DRG 426 ==
LOC: ED 13:45 → ERH 16:18 → PSYC 16:43
PROVIDERS: ADMIT Psychiatry & Neurology Psychiatry; ATTEND Psychiatry & Neurology Psychiatry
DX: F32.9 Major depressive disorder, single episode, unspecified (principal); F25.9 Schizoaffective disorder, unspecified; F14.10 Cocaine abuse, uncomplicated; E06.3 Autoimmune thyroiditis; E78.5 Hyperlipidemia, unspecified; F41.1 Generalized anxiety disorder; G47.00 Insomnia, unspecified; G56.00 Carpal tunnel syndrome, unspecified upper limb; G62.9 Polyneuropathy, unspecified; I10 Essential (primary) hypertension; M75.101 Unspecified rotator cuff tear or rupture of right shoulder, not specified as traumatic; Z87.891 Personal history of nicotine dependence; Z91.14 Patient's other noncompliance with medication regimen; Z91.19 Patient's noncompliance with other medical treatment and regimen

== ENCOUNTER 2018-10-18 06:23 | Day surgery (SDC) | payer MEDICAID ==
[2018-10-17 11:38] VITALS: BMI 39.4
--- NOTE | 2018-10-17 21:32 | HP ---
DATE OF EXAM: 10/18/2018 REASON FOR ADMISSION: Left heart catheterization, possible angioplasty, abnormal stress test. BRIEF CLINICAL HISTORY: This is a 53-year-old female with a past medical history significant for hyperlipidemia, hypertension, edema of the leg, underwent a stress test, which was abnormal. The patient is scheduled for elective cardiac cath and possible angioplasty. The patient complained of dyspnea on exertion, chest pain on exertion, and leg edema. She was recently seen by Dr. Silver who suggested cath because the patient had positive stress test, history of coronary artery disease. The patient had a stress test by [facility] and abnormal stress by exercise nuclear study with evidence of inferolateral ischemia. Date of the stress test was 07/02/2017. Recently, the patient was seen by Dr. Silver on 09/26/2018 for this cardiac catheterization. PAST MEDICAL HISTORY: Significant for depression, hypothyroidism, hypertension, hyperlipidemia. CURRENT MEDICATIONS: The patient is taking Wellbutrin 150 mg, levothyroxine 100 mcg daily, Neurontin 300 mg 3 times a day, Celebrex 20 p.o. b.i.d., baby aspirin 81 mg daily, metoprolol 25 mg daily, losartan 25 mg daily, Flexeril 5 mg daily, clopidogrel 75 mg daily. ALLERGIES: ALLERGY TO FENOFIBRATE, GEMFIBROZIL WELL LOVASTATIN, POSSIBLY INTOLERANCE. RECENT CARDIAC WORKUP: The patient had a stress test dated, 07/12/2017 with abnormal stress myocardial perfusion study. Ejection fraction reported 68% and reported abnormal myocardial perfusion study suggestive of ischemia in the inferolateral and lateral segment dated as mentioned, 07/12/2017. SOCIAL HISTORY: Used to smoke, quit smoking; half a pack per day, stopped many years ago. Denies any history of alcohol abuse. Denies any history of substance abuse. REVIEW OF SYSTEMS: As per HPI. PHYSICAL EXAMINATION: VITAL SIGNS: Height of the patient is 5 feet 4 inches, weight of the patient is 233 pounds, body mass index 40 kg/m2. Rest of vitals; temperature afebrile, heart rate 80, blood pressure 130/80. HEENT: PERRLA. Extraocular muscles intact. NECK: Supple. No carotid bruit or thyromegaly. CHEST: Clear to auscultation. HEART: S1 and S2 regular. ABDOMEN: Soft. EXTREMITIES: Clubbing and cyanosis negative. IMPRESSION: A 53-year-old obese female with past medical history of hypertension, hyperlipidemia, abnormal stress test in 05/2017 is scheduled for cardiac catheterization because of the chest pain and abnormal stress test. We will review the blood work when available. Risk, benefits, and alternatives were explained to the patient. The patient agreed to proceed with cardiac catheterization. Further recommendation after cardiac catheterization. Campbell Rose MD
[2018-10-18] MEDS ORDERED: Lidocaine 2% Inj (20ml) ONE (07:11)
[2018-10-18] MEDS ORDERED: Nitroglycerin 50mg in D5W 50 MG/250 ML BOTTLE IV ONE (07:12)
[2018-10-18] MEDS ORDERED: Iohexol 350mgl/ml 50 ML ONE (07:12)
[2018-10-18] MEDS ORDERED: Verapamil 2 ML ONE (07:12)
[2018-10-18 07:17] LABS: BASO # 0.03 K/mm3 (0.0-2.0); BASO % 0.3 % (0.0-3.0); EOS # 0.2 (0.0-0.7); EOS % 2.4 % (1.5-5.0); GRAN # 6.19 (1.4-6.5); GRAN % 65.3 % (50.0-68.0); HEMOGLOBIN 11.7 g/dL (12.0-16.0); LYMPH # 2.5 (1.2-3.4); LYMPH % 26.2 % (22.0-35.0); MEAN CELL VOLUME 88.6 fl (80.0-105.0); MEAN CORPUSCULAR HGB CONC 32.7 g/dl (31.0-37.0); MEAN PLATELET VOLUME 10.6 fl (7.0-11.0); MONO # 0.6 (0.1-0.6); MONO % 5.8 % (1.0-6.0); RBC 4.04 10^6/uL (3.5-6.1); RED CELL DISTRIBUTION WIDTH 12.9 % (11.5-14.5); WHITE BLOOD COUNT 9.5 10^3/uL (4.5-11.0)
[2018-10-18 07:26] LABS: PARTIAL THROMBOPLASTIN TIME 31.3 Seconds (25.1-36.5); PROTHROMBIN TIME 11.5 SECONDS (9.4-12.5)
[2018-10-18] MEDS ORDERED: Midazolam 2 MG/2 ML VIAL ONE (07:47)
[2018-10-18] MEDS ORDERED: Bacitracin 500 Units/gm Oint Foilpak UD TOP ONE (08:20)
[2018-10-18] MEDS ORDERED: Sodium Chloride 0.9% 1,000 ML IV SCH (08:30)
[2018-10-18 08:40] VITALS: RESP 18; TEMP 97.7
--- NOTE | 2018-10-18 09:15 | CPOSTOP ---
CARDIOVASCULAR LAB POSTPROCEDURE NOTE DATE: 10/18/2018 PHYSICIAN: Dr. Dione Rose. MANAGER ORGANIZATIONAL: Breanne Stephenson, iv technician. TYPE OF ANESTHESIA: Moderate conscious sedation, total 2 mg of Versed and 100 of fentanyl given periodically. Started 1 mg of Versed and 50 of fentanyl. PROCEDURE PERFORMED: Left heart catheterization. FINDINGS: Nonobstructive coronary artery disease. FINAL DIAGNOSIS: Nonobstructive coronary artery disease. POST PROCEDURE CONDITION: The patient condition is stable. VASCULAR ACCESS SITE: Left radial. CLOSURE DEVICE APPLIED: TR band. TOTAL RADIATION DOSE: 4511.30 milligray unit. TOTAL FLUORO TIME: 1.5 minute. Campbell Rose MD
[2018-10-18 11:37] VITALS: O2SAT 98
[2018-10-18] MEDS ORDERED: Bacitracin 500 Units/gm Oint Foilpak UD ONE (12:02)
[2018-10-18 12:14] VITALS: BP 122/66; PULSE 68
--- NOTE | 2018-10-18 15:17 | CARD ---
APPROVED REPORT Date of service: 10/18/2018 Procedure(s) performed: Left Heart Catheterization HISTORY The patient is a 53 year-old female with a history of : chronic lung disease, tobacco history() : The patient is a former smoker , hypertension , dyslipidemia , who has BORGES and Abnormal stress test inferior- lateral ischemia.. INDICATION The indication(s) include : positive stress test, chest pain, dyspnea. CASE TECHNIQUE The patient was brought electively to the Cardiac Catheterization Laboratory in a fasting state and was prepped and draped in a sterile manner. The left wrist was infiltrated with 2% Lidocaine subcutaneous anesthesia. A 6FR GLIDESEndoluminal SciencesTH ACCESS KIT sheath was inserted into the left radial artery without difficulty. Coronary angiography was performed using coronary diagnostic catheters. The left coronary system was accessed and visualized with a Diagnostic ,5F JL 4 CATH DXT 100 CM catheter. The right coronary system was accessed and visualized with a Diagnostic ,5F JR 4 CATH DXT 100 CM catheter. The left ventricle was accessed and visualized with a 5F PIGTAIL 145 CATH DXT 110 CM catheter. Left ventricular/Aortic Valve gradient assessed on pullback. Left ventriculogram was performed in TAM projection. Closure device was deployed with a Fr TR Band (Regular) without any complications. The patient tolerated the procedure well and there were no complications associated with the procedure. Vessel Analysis The patient's coronary anatomy is right dominant. The left main coronary artery is a medium size vessel with intimal irregularities. The left main bifurcates to the left anterior descending and circumflex. The left anterior descending artery is a medium size vessel with intimal irregularities, but totrtous vessel.. The first diagonal branch is a small size vessel with intimal irregularities. The second diagonal branch is a small size vessel with intimal irregularities. The third diagonal branch is a small size vessel with intimal irregularities. The circumflex artery is a medium size vessel with intimal irregularities and without significant stenosis. Very tortous vessel The first obtuse marginal branch is a medium size vessel with intimal irregularities and without significant stenosis, but very tortous vessel. The second obtuse marginal branch is a medium size vessel with intimal irregularities and without significant stenosis, but tortous vessel.. The right coronary artery is a medium size vessel with intimal irregularities and without significant stenosis. The right posterior descending artery is a medium size vessel with diffuse calcification noted throughout this vessel and without significant stenosis. There is a 50-55% stenosis in the very distal segment,diffusely diseased, but no focal flow limiting stenosis.. The right posterolateral branch is a medium size vessel with intimal irregularities and without significant stenosis. Left Ventricle The left ventricle is normal in size with normal contractility. There was no cardiomyopathy. The left ventricular ejection fraction is estimated to be 60-65%. The left ventricular end diastolic pressure is 18 mmHg. There was no gradient across the aortic valve upon pullback. Conclusion Non-obstructive CAD limited to Distal R PDA diffusely diseased with 50-55% stenosis, but no focal flow limiting stenosis. Preserved Lv Fx. EF-60-65%, EDP-18 mm of Hg. Recommendations Aggressive Medical TherapyCardiac Risk Reduction Program Weight Loss Reduction Program CC; drs. Pabon / Adrianne.
== END 2018-10-18 13:17 | disposition home or self-care (01) ==
LOC: CATH 06:23
PROVIDERS: ATTEND Internal Medicine Cardiovascular Disease
DX: I25.10 Atherosclerotic heart disease of native coronary artery without angina pectoris (principal); E66.9 Obesity, unspecified; E03.9 Hypothyroidism, unspecified; I10 Essential (primary) hypertension; E78.5 Hyperlipidemia, unspecified; Z87.891 Personal history of nicotine dependence; Z68.39 Body mass index [BMI] 39.0-39.9, adult; Z79.899 Other long term (current) drug therapy; R94.39 Abnormal result of other cardiovascular function study; R06.02 Shortness of breath
CPT/HCPCS: 36415; 80048; 80061; 85025; 85610; 85730; 86850; 86900; 93458; C1769; J1644 ×2; J2250; J3010; J7030; J7040; Q9967